=== PATIENT | male | born 1990 | race African-American/Black ===

== ENCOUNTER 2023-04-22 10:16 | Inpatient (IN) | payer OTHER, SELFPAY ==
[2023-04-22] MEDS ORDERED: Sodium Bicarb 50 MEQ/50 ML Abboject 8.4% SYRINGE ONE (10:21)
[2023-04-22] MEDS ORDERED: Calcium Chloride 1 GM/10 ML Abboject SYRINGE ONE (10:21)
[2023-04-22] MEDS ORDERED: Fentanyl CADD 100 ML IV SCH (10:45)
[2023-04-22 11:11] LABS: Analyzer IN Cardio ER; Base Excess -6.1 mEq/L (-2.0 to +3.0); Calcium, Ionized (venous) 1.08 mmol/L (1.16-1.32); Chloride (VBG) 106 mmol/L (98-106); Hematocrit-VBG 41 % (42.0-52.0); Potassium (VBG) 3.62 mmol/L (3.70-5.30); Sodium 141 mmol/L (133-146); pH (venous) 7.337 (7.32-7.43)
[2023-04-22 11:27] LABS: ALT (SGPT) 22 U/L (8-55); AST (SGOT) 25 U/L (5-34); Albumin 3.2 g/dL (3.5-5.0); Alcohol 34.2 mg/dL (Less than 10); Alkaline Phosphatase 39 U/L (40-110); Anion Gap 17 mmol/L (10-20); BUN (Urea Nitrogen) 14 mg/dL (8.9-20.6); Bilirubin, Total 0.5 mg/dL (0.2-1.2); Calc. Creatinine Clearance 0 mL/min (70-130); Carbon Dioxide 20 mmol/L (22-29); Chloride 106 mmol/L (98-107); Estimated GFR 86; Globulin 2.2 g/dL (2.4-3.5); Glucose 107 mg/dL (70-105); Lipase 29 U/L (8-78); Potassium 3.6 mmol/L (3.5-5.1); Protein, Total 5.4 g/dL (6.0-8.3); Sodium 139 mmol/L (136-145)
[2023-04-22] MEDS ORDERED: Vecuronium 10 MG VIAL ONE (11:28)
[2023-04-22] MEDS ORDERED: Dexamethasone 20 MG/5 ML VIAL ONE (11:28)
[2023-04-22] MEDS ORDERED: Ondansetron PF 4 MG/2 ML Vial ONE (11:28)
[2023-04-22] MEDS ORDERED: PHENYLEPHRINE-NS 100 MCG/ML 10 ML SYRINGE ONE (11:28)
[2023-04-22] MEDS ORDERED: Rocuronium Bromide 10 MG/ML (10ML VIAL) ONE (11:28)
[2023-04-22] MEDS ORDERED: diphenhydrAMINE 50 MG/ML VIAL ONE (11:28)
[2023-04-22 11:47] LABS: PTT 25.6 sec (22.9-36.1)
[2023-04-22 12:14] LABS: INR-International Normal Ratio 1.1; Prothrombin Time 14.5 sec (12.0-14.7)
[2023-04-22] MEDS ORDERED: Morphine 4 MG/ML VIAL SLOW IVP PRN (12:27)
[2023-04-22] MEDS ORDERED: Ondansetron PF 4 MG/2 ML Vial IVP PRN (12:27)
[2023-04-22] MEDS ORDERED: Morphine 2 MG/ML VIAL SLOW IVP PRN (12:27)
[2023-04-22] MEDS ORDERED: FENTANYL 500 MCG/10 ML VIAL 2,000 MCG in Sodium Chloride 0.9% 60 ML IV PRN (12:29)
[2023-04-22] MEDS ORDERED: Piperacillin/Tazobactam 3.375 GM in Sodium Chloride 0.9% 100 ML IVPB SCH (13:15)
[2023-04-22] MEDS ORDERED: Vancomycin 1 GM VIAL ONE (13:54)
[2023-04-22] MEDS: Sodium Chloride 0.9% 1,000 ML IV SCH ×2 (13:54→20:10)
[2023-04-22] MEDS: Acetaminophen 500 MG TAB PO SCH ×2 (14:01→20:11)
[2023-04-22 16:51] VITALS: BMI 23.3
[2023-04-22] MEDS ORDERED: Fentanyl CADD 100 ML ONE (17:06)
[2023-04-22 17:07] LABS: Actual Bicarbonate (HCO3a) 23.3 mEq/L (22-28); Base Excess (BEa) 0.6 mEq/L (-2.0 to +3.0); CO2 Tension 31.9 mmHg (35.0-45.0); Calcium, Ionized (arterial) 1.16 mmol/L (1.12-1.30); Carboxyhemoglobin (COHb) 1.1 gm% (0.0-3.0); Hematocrit-ABG 43 % (42.0-52.0); Hemoglobin (Hb) 14.7 g/dL (14.0-18.0); O2 Tension (PaO2), arterial 218.3 mmHg (80.0-100.0); pH, Arterial 7.481 (7.35-7.45)
[2023-04-22] MEDS: Fentanyl CADD 100 ML IV SCH (17:09)
[2023-04-22 17:11] LABS: ALV-art Gradient 27.025 mmHg (0-20); Puncture Site RBA
[2023-04-22 17:27] LABS: #Monocytes 0.5 thou/uL (0.11-0.59); #Neutrophils 7.2 thou/uL (1.40-6.50); %Basophils 0.2 % (0.0-1.0); %Eosinophils 0.1 % (0.0-10.0); %Monocytes 5.8 % (0.0-10.0); %Neutrophils 88.8 % (42.0-75.0); Hematocrit 42.2 % (42.0-52.0); Hemoglobin 14.4 g/dL (14.0-18.0); Mean Corpuscular HGB CONC 34.1 g/dL (32.0-36.0); Mean Corpuscular Hemoglobin 31.5 pg (27.0-31.0); Mean Corpuscular Volume 92.3 fl (78.0-98.0); Mean Platelet Volume 9.4 fL (7.4-10.4); Platelet Count 165 10x3/uL (130-400); RBC Distribution Width 13.6 % (11.5-14.5); Red Blood Cell (RBC) Count 4.57 mill/uL (4.70-6.10); White Blood Cell (WBC) Count 8.1 10x3/uL (4.8-10.8)
[2023-04-22] MEDS ORDERED: Electrolyte Replacement Protocol 1 EACH FS SCH (17:30)
[2023-04-22] MEDS ORDERED: Electrolyte Replacement Protocol FS PRN (17:30)
[2023-04-22 17:46] LABS: Lactic Acid 1.5 mmol/L (0.5-2.2)
[2023-04-22 17:49] LABS: Anion Gap 14 mmol/L (10-20); BUN (Urea Nitrogen) 17 mg/dL (8.9-20.6); Calc. Creatinine Clearance 100 mL/min (70-130); Calcium 9.5 mg/dL (7.8-10.44); Carbon Dioxide 21 mmol/L (22-29); Chloride 109 mmol/L (98-107); Estimated GFR 83; Glucose 129 mg/dL (70-105); Magnesium 1.9 mg/dL (1.6-2.6); Phosphorus 4.4 mg/dL (2.3-4.7); Potassium 4.4 mmol/L (3.5-5.1); Sodium 140 mmol/L (136-145)
[2023-04-22 17:51] LABS: Amphetamine Detected (NotDetected); Barbiturates Screen Not Detected (NotDetected); Benzodiazepine Screen Not Detected (NotDetected); Cocaine Metabolite Screen Not Detected (NotDetected); Methadone Not Detected (NotDetected); Methamphetamine Detected (NotDetected); Opiate Screen Not Detected (NotDetected); Oxycodone Screen Not Detected (NotDetected); Phencyclidine (PCP) Not Detected (NotDetected); THC/Cannabinoid Screen Not Detected (NotDetected); Tricyclic Screen Not Detected (NotDetected)
[2023-04-22] MEDS ORDERED: Magnesium 2 GM/50 ML(in water) 2 GM in Premix 1 BAG IVPB SCH (18:45)
[2023-04-22] MEDS ORDERED: hydrALAZINE 20 MG/ML VIAL SLOW IVP PRN (18:48)
[2023-04-22] MEDS: Piperacillin/Tazobactam 3.375 GM in Sodium Chloride 0.9% 100 ML IVPB SCH (19:09)
[2023-04-22] MEDS: Ipratropium/Albuterol 3 ML NEB NEB SCH (19:15)
[2023-04-22] MEDS: Famotidine/PF 20 mg/2ml Vial SLOW IVP SCH (20:11)
[2023-04-22] MEDS: Propofol 1,000 MG/100 ML VIAL IV PRN (20:49)
[2023-04-22] MEDS ORDERED: Dexmedetomidine In 0.9 % NaCl 100 ML IVPB SCH (22:15)
[2023-04-22] MEDS ORDERED: Dexmedetomidine 400 MCG, Admixture Fee 1 EACH in Sodium Chloride 0.9% 96 ML IVPB SCH (22:30)
[2023-04-23] MEDS: Propofol 1,000 MG/100 ML VIAL IV PRN ×2 (00:51→04:47)
[2023-04-23] MEDS: Sodium Chloride 0.9% 1,000 ML IV SCH ×3 (01:46→14:53)
[2023-04-23] MEDS: Piperacillin/Tazobactam 3.375 GM in Sodium Chloride 0.9% 100 ML IVPB SCH ×3 (02:22→17:46)
[2023-04-23] MEDS: Acetaminophen 500 MG TAB PO SCH ×4 (02:23→14:53)
[2023-04-23] MEDS: Fentanyl CADD 100 ML IV SCH (02:51)
[2023-04-23 05:57] LABS: #Monocytes 0.8 thou/uL (0.11-0.59); #Neutrophils 7.1 thou/uL (1.40-6.50); %Basophils 0.1 % (0.0-1.0); %Monocytes 9.7 % (0.0-10.0); Hematocrit 36.3 % (42.0-52.0); Hemoglobin 12.2 g/dL (14.0-18.0); Mean Corpuscular HGB CONC 33.6 g/dL (32.0-36.0); Mean Corpuscular Hemoglobin 31.3 pg (27.0-31.0); Mean Corpuscular Volume 93.1 fl (78.0-98.0); Mean Platelet Volume 9.4 fL (7.4-10.4); Platelet Count 175 10x3/uL (130-400); RBC Distribution Width 13.8 % (11.5-14.5); White Blood Cell (WBC) Count 8.5 10x3/uL (4.8-10.8)
[2023-04-23 06:14] LABS: Lactic Acid 1.5 mmol/L (0.5-2.2)
[2023-04-23 06:21] LABS: Anion Gap 10 mmol/L (10-20); BUN (Urea Nitrogen) 16 mg/dL (8.9-20.6); Calc. Creatinine Clearance 111 mL/min (70-130); Calcium 8.4 mg/dL (7.8-10.44); Carbon Dioxide 24 mmol/L (22-29); Chloride 109 mmol/L (98-107); Estimated GFR 86; Glucose 132 mg/dL (70-105); Magnesium 2.5 mg/dL (1.6-2.6); Potassium 4.4 mmol/L (3.5-5.1); Sodium 139 mmol/L (136-145)
[2023-04-23] MEDS: Ipratropium/Albuterol 3 ML NEB NEB SCH ×2 (07:40→13:55)
[2023-04-23 08:08] LABS: Actual Bicarbonate (HCO3a) 23.6 mEq/L (22-28); CO2 Tension 38.9 mmHg (35.0-45.0); Calcium, Ionized (arterial) 1.08 mmol/L (1.12-1.30); Carboxyhemoglobin (COHb) 0.8 gm% (0.0-3.0); Hematocrit-ABG 37 % (42.0-52.0); Hemoglobin (Hb) 12.6 g/dL (14.0-18.0); O2 Tension (PaO2), arterial 76.1 mmHg (80.0-100.0); Potassium - ABG Lab 4.36 mmol/L (3.70-5.30)
[2023-04-23 08:11] LABS: Puncture Site RBA
[2023-04-23] MEDS ORDERED: Acetaminophen 500 MG TAB PO SCH (08:15)
[2023-04-23] MEDS: Famotidine/PF 20 mg/2ml Vial SLOW IVP SCH (08:59)
[2023-04-23] MEDS ORDERED: FLU VACC QS2023-24(6MOS UP)/PF 60 MCG/0.5 ML SYRINGE IM ONE (09:00)
[2023-04-23 10:13] LABS: Actual Bicarbonate (HCO3a) 24.9 mEq/L (22-28); Base Excess (BEa) 0.3 mEq/L (-2.0 to +3.0); Calcium, Ionized (arterial) 1.08 mmol/L (1.12-1.30); Carboxyhemoglobin (COHb) 0.6 gm% (0.0-3.0); Hematocrit-ABG 38 % (42.0-52.0); O2 Tension (PaO2), arterial 148.3 mmHg (80.0-100.0); Potassium - ABG Lab 4.32 mmol/L (3.70-5.30); pH, Arterial 7.412 (7.35-7.45)
[2023-04-23 10:14] LABS: Puncture Site RBA
[2023-04-23 12:23] VITALS: TEMP 98.1
[2023-04-23 15:45] VITALS: BP 126/68
[2023-04-23] MEDS ORDERED: Piperacillin/Tazobactam 3.375 GM in Sodium Chloride 0.9% 100 ML IVPB SCH (18:00)
== END 2023-04-23 18:02 | disposition short-term general hospital (02) | DRG 957 ==
LOC: EDBD 10:16 → EEVIPCON 10:16 → ERS 10:16 → SDC 11:27 → CCU 12:27
PROVIDERS: ADMIT Specialist; ATTEND Specialist
PROC: 0WCJ0ZZ Extirpation of Matter from Pelvic Cavity, Open Approach (ICD-10-PCS; principal; 2023-04-22)
PROC: 0DQB0ZZ Repair Ileum, Open Approach (ICD-10-PCS; 2023-04-22)
PROC: 30233K1 Transfusion of Nonautologous Frozen Plasma into Peripheral Vein, Percutaneous Approach (ICD-10-PCS; 2023-04-22)
PROC: 30233N1 Transfusion of Nonautologous Red Blood Cells into Peripheral Vein, Percutaneous Approach (ICD-10-PCS; 2023-04-22)
PROC: 4A133R1 Monitoring of Arterial Saturation, Peripheral, Percutaneous Approach (ICD-10-PCS; 2023-04-22)
PROC: 0PSH04Z Reposition Right Radius with Internal Fixation Device, Open Approach (ICD-10-PCS; 2023-04-22)
PROC: 0PSR04Z Reposition Right Thumb Phalanx with Internal Fixation Device, Open Approach (ICD-10-PCS; 2023-04-22)
PROC: 5A1945Z Respiratory Ventilation, 24-96 Consecutive Hours (ICD-10-PCS; 2023-04-22)
DX: S06.6XAA Traumatic subarachnoid hemorrhage with loss of consciousness status unknown, initial encounter (principal); R57.8 Other shock; S31.644A Puncture wound with foreign body of abdominal wall, left lower quadrant with penetration into peritoneal cavity, initial encounter; S52.91XA Unspecified fracture of right forearm, initial encounter for closed fracture; S52.92XA Unspecified fracture of left forearm, initial encounter for closed fracture; S36.598A Other injury of other part of colon, initial encounter; S32.302A Unspecified fracture of left ilium, initial encounter for closed fracture; S36.438A Laceration of other part of small intestine, initial encounter; W34.00XA Accidental discharge from unspecified firearms or gun, initial encounter; S01.04XA Puncture wound with foreign body of scalp, initial encounter; S41.041A Puncture wound with foreign body of right shoulder, initial encounter; S61.541A Puncture wound with foreign body of right wrist, initial encounter; S71.132A Puncture wound without foreign body, left thigh, initial encounter; S41.031A Puncture wound without foreign body of right shoulder, initial encounter; S62.501A Fracture of unspecified phalanx of right thumb, initial encounter for closed fracture
CPT/HCPCS: 36415; 36430; 36600; 70450; 71045; 80048; 80053; 80306; 80307; 82805; 83605; 83690; 83735; 84100; 85025; 85610; 85730; 86850; 86900; 86901; 94002; 94003; 94640; A4314; C1713; C1874; G0390; J2543; J2704; J3010; J3370; J3475; J3490; J7050; J7620; P9016; P9048; S0028

== ENCOUNTER 2023-05-02 12:19 | Emergency (ER) | payer OTHER, SELFPAY | END 2023-05-02 13:21 | disposition home or self-care (01) | LOC: ERS 12:19 | DX: Z48.817 Encounter for surgical aftercare following surgery on the skin and subcutaneous tissue (principal) | CPT/HCPCS: 99282 ==

== ENCOUNTER 2023-05-09 11:54 | Emergency (ER) | payer OTHER ==
[2023-05-09 14:05] LABS: #Eosinphils 0.1 thou/uL (0.0-0.7); #Monocytes 0.6 thou/uL (0.11-0.59); #Neutrophils 6.9 thou/uL (1.40-6.50); %Basophils 0.3 % (0.0-1.0); %Eosinophils 0.6 % (0.0-10.0); %Lymphocytes 17.4 % (21.0-51.0); %Monocytes 5.9 % (0.0-10.0); %Neutrophils 74.9 % (42.0-75.0); Hematocrit 29.3 % (42.0-52.0); Hemoglobin 9.8 g/dL (14.0-18.0); Mean Corpuscular HGB CONC 33.4 g/dL (32.0-36.0); Mean Corpuscular Hemoglobin 31.4 pg (27.0-31.0); Mean Corpuscular Volume 93.9 fl (78.0-98.0); Mean Platelet Volume 8.4 fL (7.4-10.4); Platelet Count 557 10x3/uL (130-400); RBC Distribution Width 13.2 % (11.5-14.5); Red Blood Cell (RBC) Count 3.12 mill/uL (4.70-6.10); White Blood Cell (WBC) Count 9.3 10x3/uL (4.8-10.8)
[2023-05-09 14:27] LABS: ALT (SGPT) 18 U/L (8-55); AST (SGOT) 15 U/L (5-34); Albumin 3.1 g/dL (3.5-5.0); Alkaline Phosphatase 68 U/L (40-110); Anion Gap 10 mmol/L (10-20); BUN (Urea Nitrogen) 9 mg/dL (8.9-20.6); Bilirubin, Total 0.4 mg/dL (0.2-1.2); Calc. Creatinine Clearance 0 mL/min (70-130); Calcium 8.6 mg/dL (7.8-10.44); Carbon Dioxide 25 mmol/L (22-29); Chloride 104 mmol/L (98-107); Estimated GFR 124; Globulin 4.2 g/dL (2.4-3.5); Glucose 109 mg/dL (70-105); Potassium 3.8 mmol/L (3.5-5.1); Protein, Total 7.3 g/dL (6.0-8.3); Sodium 135 mmol/L (136-145)
[2023-05-09] MEDS ORDERED: HYDROcodone/Acetaminophen 5/325 mg Tablet ONE (14:51)
== END 2023-05-09 15:59 | disposition home or self-care (01) ==
LOC: ERS 11:54 → EEVIPCON 11:54 → ERS 15:59
DX: G89.18 Other acute postprocedural pain (principal); D64.9 Anemia, unspecified; F17.220 Nicotine dependence, chewing tobacco, uncomplicated
CPT/HCPCS: 36415; 80053; 85025; 99283